=== PATIENT | female | born 1955 | race Caucasian/White ===

== ENCOUNTER 2024-04-07 16:51 | Emergency (ER) | payer BC ==
[~2024-04-07] VITALS: Ht 162.6 cm; Wt 63.5 kg
[2024-04-07 17:24] VITALS: O2SAT 98
[2024-04-07] MEDS ORDERED: TDAP DIPH,PERTUSS,TET VAC/PF 0.5 ML DISP.SYRIN IM ONE (17:59)
[2024-04-07] MEDS ORDERED: NEOMY/BACITRA/POLYMYXIN B OINT UD PACKET TP ONE (17:59)
[2024-04-07] MEDS ORDERED: IBUPROFEN 800 MG TABLET ONE (18:04)
[2024-04-07] MEDS: IBUPROFEN 800 MG TABLET PO ONE (18:19)
[2024-04-07] MEDS: TDAP DIPH,PERTUSS,TET VAC/PF 0.5 ML DISP.SYRIN IM ONE (18:19)
[2024-04-07] MEDS: NEOMY/BACITRA/POLYMYXIN B OINT UD PACKET TP ONE (18:19)
== END 2024-04-07 18:37 | disposition home or self-care (01) ==
LOC: ER 17:05 → EDSEX 17:05 → ER 18:37
DX: T24.221A Burn of second degree of right knee, initial encounter (principal); K21.9 Gastro-esophageal reflux disease without esophagitis; Z60.2 Problems related to living alone; Z88.5 Allergy status to narcotic agent; X16.XXXA Contact with hot heating appliances, radiators and pipes, initial encounter; Y93.89 Activity, other specified; Y92.89 Other specified places as the place of occurrence of the external cause; Y99.8 Other external cause status
CPT/HCPCS: 16020; 90715; A4606; A4663